=== PATIENT | male | born 1945 | race Two or more races ===

== ENCOUNTER → 2025-09-18 | Outpatient (CLI) | payer BC, SELFPAY ==
[2025-09-18 16:35] LABS: Prostate Specific Antigen 4.81 ng/mL (0-4.00)
== END | disposition home or self-care (01) ==
PROVIDERS: PCP Internal Medicine; Referring Provider Surgery; Visit Provider Surgery
DX: N40.1 Benign prostatic hyperplasia with lower urinary tract symptoms (principal)
CPT/HCPCS: 36415; 84153